=== PATIENT | female | born 1995 | race Caucasian/White ===

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

== ENCOUNTER 2017-02-11 02:33 | Emergency (ER) | payer MEDICAID ==
[~2017-02-11] VITALS: Ht 160 cm; Wt 78.5 kg
[2017-02-11 03:10] LABS: Basophils # (auto) 0 uL; Basophils % (auto) 0.6 % (0.0-2.0); Eosinophils # (auto) 0 uL; Eosinophils % (auto) 0.6 % (0.0-7.0); Hematocrit 40.4 % (36.0-46.0); Hemoglobin 13.4 g/dL (12.2-16.2); Lymphocytes # (auto) 1.3 uL; Lymphocytes % (auto) 30.5 % (10.0-50.0); Mean Corpuscular Hemoglobin 29.8 pg (28.0-32.0); Mean Corpuscular Hgb Conc. 33.3 g/dL (32.0-36.0); Mean Corpuscular Volume 89.4 fL (80.0-100.0); Mean Platelet Volume 8.1 fL (6.9-10.8); Monocytes # (auto) 0.7 uL; Monocytes % (auto) 15.8 % (0.0-12.0); Neutrophils # (auto) 2.3 uL; Neutrophils % (auto) 52.5 % (37.0-80.0); Nucleated Red Blood Cells % 0.1 %; Platelet Count (auto) 359 10^3/uL (140-450); Red Cell Distribution Width 13.5 % (11.8-14.3); White Blood Cell 4.3 10^3/uL (4.4-10.8)
[2017-02-11 03:25] LABS: Albumin 3.8 g/dL (3.4-5.0); Potassium 3.5 mmol/L (3.5-5.1)
[2017-02-11 03:29] LABS: BUN/Creatinine Ratio 17.5; Bilirubin, Total 0.5 mg/dL (0.2-1.0); Calcium 8.8 mg/dL (8.5-10.1); Total Protein 8.8 g/dL (6.4-8.2)
[2017-02-11 03:33] LABS: Urine Bilirubin Negative (Negative); Urine Blood Negative /uL (Negative); Urine Color Yellow (Yellow); Urine Glucose Normal (Normal); Urine Ketone 1+ (Negative); Urine Mucus FEW (None Seen); Urine Nitrite Negative (Negative); Urine RBC 1 /hpf (0 - 4); Urine Squamous Epithelial Cell FEW /hpf (<5); Urine Urobilinogen Normal (Negative)
[2017-02-11 04:15] VITALS: BP 113/68
== END 2017-02-11 07:44 | disposition left against medical advice (07) ==
LOC: ER 02:40
DX: R10.9 Unspecified abdominal pain (principal); Z53.21 Procedure and treatment not carried out due to patient leaving prior to being seen by health care provider
CPT/HCPCS: 36415; 80053; 81001; 81025; 85025

== ENCOUNTER 2017-03-16 13:27 | Emergency (ER) | payer MEDICAID ==
[~2017-03-16] VITALS: Ht 160 cm; Wt 73.9 kg
[2017-03-16 16:35] VITALS: BP 114/75
[2017-03-16 16:53] LABS: Urine Specific Gravity 1.022 (1.001-1.035)
[2017-03-16 16:54] LABS: Urine Blood Trace /uL (Negative)
[2017-03-16 16:59] LABS: Urine Bacteria FEW /hpf (None Seen); Urine WBC 80 /hpf (0 - 5)
== END 2017-03-16 16:36 | disposition home or self-care (01) ==
LOC: ER 13:27
DX: N39.0 Urinary tract infection, site not specified (principal); F17.210 Nicotine dependence, cigarettes, uncomplicated; F12.10 Cannabis abuse, uncomplicated
CPT/HCPCS: 81001; 81025

== ENCOUNTER 2017-06-15 18:32 | Emergency (ER) | payer MEDICAID ==
[~2017-06-15] VITALS: Ht 162.6 cm; Wt 74.4 kg
[2017-06-15 19:20] LABS: Basophils # (auto) 0.1 uL; Basophils % (auto) 2.1 % (0.0-2.0); Eosinophils # (auto) 0 uL; Eosinophils % (auto) 0.5 % (0.0-7.0); Hematocrit 38.5 % (36.0-46.0); Lymphocytes # (auto) 1.9 uL; Lymphocytes % (auto) 27.4 % (10.0-50.0); Mean Corpuscular Hemoglobin 29.9 pg (28.0-32.0); Mean Corpuscular Hgb Conc. 33.7 g/dL (32.0-36.0); Mean Corpuscular Volume 88.7 fL (80.0-100.0); Monocytes # (auto) 0.6 uL; Monocytes % (auto) 9.2 % (0.0-12.0); Neutrophils # (auto) 4.3 uL; Neutrophils % (auto) 60.8 % (37.0-80.0); Nucleated Red Blood Cells % 0.1 %; Platelet Count (auto) 360 10^3/uL (140-450); Red Blood Cells 4.34 10^6/uL (4.0-5.20); Red Cell Distribution Width 13.2 % (11.8-14.3)
[2017-06-15 22:15] LABS: Urine Bacteria FEW /hpf (None Seen); Urine Blood Negative /uL (Negative); Urine Specific Gravity 1.004 (1.001-1.035); Urine WBC 15 /hpf (0 - 5)
[2017-06-15 22:20] LABS: Albumin 3.5 g/dL (3.4-5.0); BUN/Creatinine Ratio 15.1; Calcium 9.1 mg/dL (8.5-10.1); Potassium 3.6 mmol/L (3.5-5.1)
[2017-06-15 22:22] LABS: Bilirubin, Total 0.4 mg/dL (0.2-1.0); Total Protein 8.2 g/dL (6.4-8.2)
[2017-06-15] MEDS ORDERED: cefTRIAXone 1GM/10ml IVPUSH 10 ML IV ONE ×2 (23:15→23:45)
[2017-06-16 03:00] VITALS: BP 104/61
== END 2017-06-16 03:24 | disposition home or self-care (01) ==
LOC: ER 18:32
DX: O20.0 Threatened abortion (principal); O99.331 Smoking (tobacco) complicating pregnancy, first trimester; O23.41 Unspecified infection of urinary tract in pregnancy, first trimester; Z3A.11 11 weeks gestation of pregnancy
CPT/HCPCS: 36415; 76801; 80053; 81001; 84702; 85025; 96374

== ENCOUNTER 2017-11-22 13:23 | Observation (INO) | payer MEDICAID ==
[2017-11-22] MEDS ORDERED: TERBUTALINE SULFATE 1 MG/ML 1ML VIAL SC SCH (14:45)
[2017-11-22] MEDS ORDERED: PREN-145 OR (16:56)
== END 2017-11-22 16:30 | disposition home or self-care (01) | DRG 566 ==
LOC: LDRP 13:23
PROVIDERS: ADMIT Specialist; ATTEND Specialist
DX: O62.9 Abnormality of forces of labor, unspecified (principal); Z3A.33 33 weeks gestation of pregnancy
CPT/HCPCS: 59025; 81002; 96372; G0378; J3105

== ENCOUNTER 2017-12-19 01:04 | Observation (INO) | payer MEDICAID ==
[~2017-12-19] VITALS: Ht 162.6 cm; Wt 91.2 kg
[~2017-12-19 01:04] MED LIST: PREN-145 OR
[2017-12-19] MEDS ORDERED: LACTATED RINGER'S 1,000 ML IV SCH (01:15)
[2017-12-19] MEDS ORDERED: LACTATED RINGER'S 1,000 ML IV ONE (01:15)
[2017-12-19] MEDS ORDERED: ceFAZolin 1GM/50ML 50 ML IV ONE (01:30)
[2017-12-19 02:10] LABS: Urine Bacteria MOD /hpf (None Seen); Urine Blood Negative /uL (Negative); Urine WBC 83 /hpf (0 - 5)
[2017-12-19 02:21] LABS: Alcohol, Urine < 3.0 mg/dL (0-5); Amphetamine Screen, Urine NEGATIVE (NEGATIVE); Barbiturate Scree,Urine NEGATIVE (NEGATIVE); Benzodiazephine Screen, Urine NEGATIVE (NEGATIVE); Cannabinoid Screen, Urine NEGATIVE (NEGATIVE); Cocaine Screen, Urine NEGATIVE (NEGATIVE); Opiate Scree,Urine POSITIVE (NEGATIVE); Phencyclidine Screen, Urine NEGATIVE (NEGATIVE)
== END 2017-12-19 02:37 | disposition home or self-care (01) | DRG 566 ==
LOC: LDRP 01:04
PROVIDERS: ADMIT Obstetrics & Gynecology; ATTEND Obstetrics & Gynecology
DX: O26.893 Other specified pregnancy related conditions, third trimester (principal); F12.10 Cannabis abuse, uncomplicated; M25.50 Pain in unspecified joint; R51 Headache; O62.9 Abnormality of forces of labor, unspecified; O99.343 Other mental disorders complicating pregnancy, third trimester; Z3A.37 37 weeks gestation of pregnancy
CPT/HCPCS: 59025; 80307; 81001; 81002; 96365; G0378; J0690; 96366

== ENCOUNTER 2017-12-28 00:29 | Inpatient (IN) | payer MEDICAID ==
[~2017-12-28] VITALS: Ht 162.6 cm; Wt 92.1 kg
[2017-12-28 02:19] LABS: Alcohol, Urine < 3.0 mg/dL (0-5); Amphetamine Screen, Urine NEGATIVE (NEGATIVE); Barbiturate Scree,Urine NEGATIVE (NEGATIVE); Benzodiazephine Screen, Urine NEGATIVE (NEGATIVE); Cannabinoid Screen, Urine NEGATIVE (NEGATIVE); Cocaine Screen, Urine NEGATIVE (NEGATIVE); Opiate Scree,Urine NEGATIVE (NEGATIVE); Phencyclidine Screen, Urine NEGATIVE (NEGATIVE)
[2017-12-28] MEDS ORDERED: METHYLERGONOVINE MALEATE 0.2 MG/ML AMP IM PRN (02:30)
[2017-12-28] MEDS ORDERED: LACTATED RINGER'S 1,000 ML IV SCH (02:30)
[2017-12-28] MEDS ORDERED: LIDOCAINE 2% (LOCAL ANESTH.) PF 5ml SDV ID ONE (02:30)
[2017-12-28] MEDS ORDERED: LACT. RINGERS/OXYTOCIN 20UNITS 1,000 ML IV SCH (02:30)
[2017-12-28] MEDS ORDERED: DERMOPLAST 60ML BOTTLE TOP PRN (02:30)
[2017-12-28] MEDS ORDERED: NALBUPHINE HCL 10 MG/1ml INJECTION IV PRN (02:30)
[2017-12-28] MEDS ORDERED: CARBOPROST TROMETHAMINE 250 MCG/1ML VIAL IM PRN (02:30)
[2017-12-28] MEDS ORDERED: PHISODERM TOP SOLN 240ML BTL TOP PRN (02:30)
[2017-12-28] MEDS ORDERED: WITCH HAZEL-GLYCERIN PAD TOP PRN (02:30)
[2017-12-28 03:05] LABS: Urine Bacteria NONE SEEN /hpf (None Seen); Urine Blood 1+ /uL (Negative); Urine WBC 81 /hpf (0 - 5)
[2017-12-28 03:22] LABS: Basophils # (auto) 0.1 uL; Basophils % (auto) 0.6 % (0.0-2.0); Eosinophils # (auto) 0 uL; Eosinophils % (auto) 0.4 % (0.0-7.0); Hematocrit 39.2 % (36.0-46.0); Hemoglobin 12.8 g/dL (12.2-16.2); Mean Corpuscular Hemoglobin 29.9 pg (28.0-32.0); Mean Corpuscular Hgb Conc. 32.5 g/dL (32.0-36.0); Mean Corpuscular Volume 91.9 fL (80.0-100.0); Monocytes # (auto) 0.9 uL; Monocytes % (auto) 7.7 % (0.0-12.0); Neutrophils # (auto) 8.9 uL; Neutrophils % (auto) 74.3 % (37.0-80.0); Platelet Count (auto) 327 10^3/uL (140-450); Red Blood Cells 4.27 10^6/uL (4.0-5.20)
[2017-12-28 03:35] LABS: INR 0.85 (0.9-1.15); Partial Thromboplastin Time 27.8 sec (23.78-33.04); Prothrombin Time 9.2 sec (9.27-12.13)
[2017-12-28 03:42] LABS: Albumin 2.7 g/dL (3.4-5.0); Calcium 8.5 mg/dL (8.5-10.1)
[2017-12-28 03:45] LABS: BUN/Creatinine Ratio 21.4; Bilirubin, Total 0.5 mg/dL (0.2-1.0); Total Protein 8.1 g/dL (6.4-8.2)
[2017-12-28] MEDS ORDERED: BUTORPHANOL TARTRATE 2 MG/1 ML VIAL IV ONE (04:00)
[2017-12-28] MEDS ORDERED: PROMETHAZINE HCL 25 MG/ML 1ML IV PRN (04:00)
[2017-12-28] MEDS ORDERED: BUTORPHANOL TARTRATE 2 MG/1 ML VIAL ONE (04:04)
[2017-12-28] MEDS ORDERED: TERBUTALINE SULFATE 1 MG/ML 1ML VIAL SC ONE (07:45)
[2017-12-28] MEDS ORDERED: fentaNYL W ROPIVACAINE 150 ML EPI SCH ×2 (09:15→11:00)
[2017-12-28] MEDS ORDERED: NALOXONE HCL 0.4 MG/ML VIAL IV ONE ×2 (09:15→11:00)
[2017-12-28] MEDS ORDERED: LIDOCAINE HCL 2 %PF INJ 10ML AMP IJ ONE (09:15)
[2017-12-28] MEDS ORDERED: fentaNYL CITRATE 100 MCG/2 ML VL IV ONE ×2 (09:15→11:00)
[2017-12-28] MEDS ORDERED: ePHEDrine SULFATE 50 MG/ML AMP IV ONE ×2 (09:15→11:00)
[2017-12-28] MEDS ORDERED: ONDANSETRON HCL 4 MG/2 ML VIAL ONE (14:44)
[2017-12-28] MEDS ORDERED: DIPHENOXYLATE W/ATROPINE 2.5 MG TAB ONE (14:54)
[2017-12-28] MEDS ORDERED: DIPHENOXYLATE W/ATROPINE 2.5 MG TAB PO ONE (15:00)
[2017-12-28 19:00] VITALS: BP 115/65
[2017-12-28] MEDS ORDERED: ACETAMINOPHEN 325 MG TAB PO PRN (21:30)
[2017-12-28] MEDS: IBUPROFEN 600 MG TAB PO PRN (21:42)
[2017-12-28 23:30] VITALS: BP 102/69
[2017-12-29] MEDS: IBUPROFEN 600 MG TAB PO PRN ×2 (00:35→10:54)
[2017-12-29 03:30] VITALS: BP 95/55
[2017-12-29 07:00] VITALS: BP 98/57
[2017-12-29 11:20] VITALS: BP 93/55
[2017-12-29] MEDS ORDERED: INFLUENZA QUAD 2018-2019 0.5 ML SYRG IM ONE (15:00)
[2017-12-29] MEDS ORDERED: TETANUS-DIPTH-ACEL PERTUSSIS 0.5ML SYRG IM ONE (15:00)
[2017-12-29] MEDS ORDERED: MEASLES, MUMPS & RUBELLA VAC(MMRII) 0.5ML SC ONE (15:00)
[2017-12-29 15:20] VITALS: BP 106/69
== END 2017-12-29 16:25 | disposition home or self-care (01) | DRG 560 ==
LOC: OBSVTOIN 00:29 → LDRP 00:29
PROVIDERS: ADMIT Specialist; ATTEND Specialist
PROC: 10D07Z6 Extraction of Products of Conception, Vacuum, Via Natural or Artificial Opening (ICD-10-PCS; principal; 2017-12-28)
PROC: 00HU33Z Insertion of Infusion Device into Spinal Canal, Percutaneous Approach (ICD-10-PCS; 2017-12-28)
PROC: 3E0R3BZ Introduction of Anesthetic Agent into Spinal Canal, Percutaneous Approach (ICD-10-PCS; 2017-12-28)
PROC: 0KQM0ZZ Repair Perineum Muscle, Open Approach (ICD-10-PCS; 2017-12-28)
DX: O77.0 Labor and delivery complicated by meconium in amniotic fluid (principal); O70.1 Second degree perineal laceration during delivery; Z37.0 Single live birth; Z3A.39 39 weeks gestation of pregnancy
CPT/HCPCS: 36415; 59025; 59409; 59414; 62282; 80053; 80307; 81001; 81002; 85025; 85610; 85730; 86850; 86900; 86901; 90674; 90715; 96365; 96366; 96372; 96374; 96375; G0378; J2001; J2405; J2590; J3010

== ENCOUNTER 2024-04-22 22:50 | Inpatient (IN) | payer MEDICAID ==
[~2024-04-22] VITALS: Ht 162.6 cm; Wt 97.5 kg
[2024-04-23] MEDS ORDERED: LIDOCAINE 2%HCL (LOCAL ANESTH.) INJ 20ML MDV IJ PRN (02:15)
[2024-04-23] MEDS ORDERED: PENICILLIN G POT 5MIL/D5 50ML 50 ML IV ONE (02:15)
[2024-04-23] MEDS ORDERED: NALBUPHINE HCL 10 MG/1ml INJECTION IV PRN (02:15)
[2024-04-23 02:52] LABS: Urine Bacteria None Seen /hpf (None Seen)
[2024-04-23 02:53] LABS: Basophils # (auto) 0.1 10 ^3/uL (0-0.2); Basophils % (auto) 0.7 % (0.0-2.0); Eosinophils # (auto) 0 10 ^3/uL (0-0.8); Eosinophils % (auto) 0.3 % (0.0-7.0); Hematocrit 37.4 % (36.0-46.0); Hemoglobin 12.5 g/dL (12.2-16.2); Lymphocytes # (auto) 1.5 10 ^3/uL (0.4-5.4); Lymphocytes % (auto) 18.2 % (10.0-50.0); Mean Corpuscular Hemoglobin 29.7 pg (28.0-32.0); Mean Corpuscular Hgb Conc. 33.3 g/dL (32.0-36.0); Mean Corpuscular Volume 89.2 fL (80.0-100.0); Monocytes # (auto) 0.9 10 ^3/uL (0-1.3); Monocytes % (auto) 10.9 % (0.0-12.0); Neutrophils # (auto) 5.9 10 ^3/uL (1.6-8.6); Neutrophils % (auto) 69.9 % (37.0-80.0); Nucleated Red Blood Cells % 0.2 %; Platelet Count (auto) 316 10^3/uL (140-450); Red Cell Distribution Width 15.1 % (11.8-14.3); White Blood Cell 8.4 10^3/uL (4.4-10.8)
--- NOTE | 2024-04-23 02:59 | DVHHP ---
ADMIT DATE: 04/23/2024 CHIEF COMPLAINT: Labor. HISTORY OF PRESENT ILLNESS: The patient is a 29-year-old 2, para 1 with EDC 04/28, estimated gestational age of 39 weeks, admitted for labor. The patient denies having vaginal bleeding or rupture of membrane. The patient has care with Dr. Medellin, did not want to deliver with her. She presented to labor and delivery. PAST MEDICAL HISTORY: None. PAST SURGICAL HISTORY: None. SOCIAL HISTORY: None. FAMILY HISTORY: None. OBSTETRIC AND GYNECOLOGIC HISTORY: One vaginal delivery. REVIEW OF SYSTEMS: Consistent with HPI. PHYSICAL EXAMINATION: VITAL SIGNS: Stable, afebrile. HEENT: Within normal limits. CARDIOVASCULAR: Regular rate and rhythm. LUNGS: Clear to auscultation. BREASTS: Symmetrical. No masses. ABDOMEN: Gravid. Positive heart. PELVIC: 4 cm, 70%, -2. EXTREMITIES: No clubbing, cyanosis or edema. IMPRESSION: * Intrauterine at 39 weeks, in labor. * Unknown care. PLAN: Expectant vaginal delivery. Informed consent obtained. The patient will be managed by Dr. Espino, on-call physician at 7:00 a.m. Betty An DO MZ/HEM TID: [id number] RECEIPT: [id number]
--- NOTE | 2024-04-23 03:00 | DVH ---
Examination: BPP CLINICAL INDICATION: GDMA1 COMPARISON: None. TECHNIQUE: Transabdominal ultrasound was performed. FINDINGS: movement- 2/2 tone- 2/2 breathing- 2/2 Amniotic fluid index- 2/2 KAILYN- 9.9 cm FHR 169 bpm Presentation vertex Placenta-fundal No placenta previa or Placental abruption IMPRESSION: Biophysical profile- 10/07, Normal. Electronically Signed 04/23/2024 02:58 Rasta Peters
--- NOTE | 2024-04-23 03:01 | DVH ---
Examination: OBUS CLINICAL INDICATION: No Care/GDMA1 COMPARISON: None. TECHNIQUE: Transabdominal obstetric ultrasound was performed. FINDINGS Profile: A single live intrauterine is present.Cephalic presentation noted. cardiac activity is well appreciated with a heart rate (FHR) of 163 bpm.The estimated weight is 3574 grams.P lacenta: Anterior fundal placenta with a grade 3 maturity.Amniotic Fluid Index (KAILYN): 10.29 cm. Cervix: Cervix is not visualized.No percent previa or abruption seen. Biometry: Biparietal Diameter (BPD): 8.94 cm, corresponding to 36 weeks 1 day.Head Circumference (HC): 33.43 cm , corresponding to 38 weeks 2 days.Abdominal Circumference (AC): 35.35 cm, corresponding to 39 weeks 2 days.Femur Length (FL): 7.67 cm, corresponding to 39 weeks 2 days.Average Gestational Age: 38 weeks 2 days.Estimated Due Date (JOSE): 05/05/2024.IMPRESSION: 1. Single live intrauterine at approximately 38 weeks 2 days gestation. 2. Cephalic presentation 3. No evidence of previa or abruption. 4. Placenta is anterior and fundal, grade 3. RECOMMENDATIONS: 1. Routine obstetric follow-up as per clinical guidelines. 2. Continue standard care. 3. Further evaluation if clinically indicated. Electronically Signed 04/23/2024 02:59 Rasta Peters
[2024-04-23 03:08] LABS: INR 0.9 (0.9-1.15); Partial Thromboplastin Time 28.2 SEC (24.5-34.5); Prothrombin Time 9.6 sec (9.3-11.8)
[2024-04-23 03:12] LABS: Alanine Aminotransferase 33 U/L (7-40); Albumin 3.7 g/dL (3.2-4.8); Anion Gap 9 (5-15); Aspartate Aminotransferase 35 U/L (13-40); BUN/Creatinine Ratio 18.2 (10.0-20.0); Bilirubin, Total 0.3 mg/dL (0.2-1.0); Blood Urea Nitrogen 10 mg/dL (9-23); Calcium 9.2 mg/dL (8.7-10.4); Carbon Dioxide 22 mmol/L (20-31); Glucose 83 mg/dL (74-106); Potassium 3.8 mmol/L (3.5-5.1); Sodium 138 mmol/L (136-145); Total Protein 6.9 g/dL (5.7-8.2)
[2024-04-23 03:14] LABS: Alkaline Phosphatase 153 U/L (46-116); Amphetamine Screen, Urine Neg (NEGATIVE); Barbiturate Scree,Urine Neg (NEGATIVE); Benzodiazephine Screen, Urine Neg (NEGATIVE); Cannabinoid Screen, Urine Neg (NEGATIVE); Chloride 107 mmol/L (98-107); Cocaine Screen, Urine Neg (NEGATIVE); Opiate Scree,Urine Neg (NEGATIVE); Phencyclidine Screen, Urine Neg (NEGATIVE)
[2024-04-23 03:22] LABS: Urine Blood 2+ /uL (Negative); Urine Clarity Turbid (Clear); Urine Color Yellow (Yellow); Urine Mucus FEW (None Seen); Urine Protein, UAD TRACE (Negative); Urine Squamous Epithelial Cell FEW /hpf (<5); Urine Urobilinogen Normal (Negative); Urine WBC 21 /HPF (0-5)
[2024-04-23] MEDS ORDERED: ePHEDrine SULFATE 50 MG/ML AMP IV ONE (04:15)
[2024-04-23] MEDS ORDERED: NALOXONE HCL 0.4 MG/ML VIAL IV ONE (04:15)
[2024-04-23] MEDS ORDERED: ROPIVACAINE HCL 200 ML ONE (04:25)
[2024-04-23] MEDS: DERMOPLAST 60ML BOTTLE TOP PRN (04:32)
[2024-04-23] MEDS: WITCH HAZEL-GLYCERIN PAD TOP PRN (04:32)
[2024-04-23] MEDS: PHISODERM TOP SOLN 240ML BTL TOP PRN (04:32)
[2024-04-23] MEDS ORDERED: ACCU-CHEK COMFORT CURVE STRIP VI SCH (05:00)
[2024-04-23] MEDS: LACTATED RINGER'S 1,000 ML IV ONE (06:01)
[2024-04-23] MEDS ORDERED: PENICILLIN G POTASSIUM 2,500,000 UNITS in D5W 5% 50 ML IV SCH (06:15)
--- NOTE | 2024-04-23 08:38 | DVHPN2 ---
Chief Complaints Patient reports: No new complaints Nursing reports: No new complaints Objective Medications Current Medications Medications (Trade) Dose Ordered Sig/Sunday Route PRN Reason Start Time Stop Time Status Last Admin Benzocaine (Dermoplast) 1 applic PRN PRN TOP PERINEAL AREA DISCOMFORT 04/23/24 02:15 04/23/24 04:32 Diagnostic Test (Pha) (Accu-Chek Comfort Curve T) 1 strip Q4HR 04/23/24 05:00 Lidocaine HCl (Xylocaine) 20 ml ONCE PRN IJ PERINEAL AREA DISCOMFORT 04/23/24 02:15 Nalbuphine HCl (Nubain) 10 mg Q4HP PRN IV MODERATE PAIN (4-6 PAIN SCALE) 04/23/24 02:15 Penicillin G Potassium [id number] units/Dextrose 50 ml @ 100 mls/hr Q4H IV 04/23/24 06:15 Sodium Lauryl Sulfate (Phisoderm) 240 ml PRN PRN TOP PERINEAL AREA DISCOMFORT 04/23/24 02:15 04/23/24 04:32 Witch Wendy (Yulia) 1 pad PRN PRN TOP PERINEAL AREA DISCOMFORT 04/23/24 02:15 04/23/24 04:32 Others VE ; 10cm , 100 %, 0 station Arom clear Studies Laboratory Tests 04/23/24 02:30 Test 04/23/24 02:30 Range/Units Serum Glucose 83 74-106 mg/dL Ass/Plan Assessment Labor active Plan expectant vag delivery YEE RINCON DO Apr 23, 2024 08:38
--- NOTE | 2024-04-23 09:46 | LDN2 ---
Labor and Delivery Note Date 04/23/24 Age 29 2 Para 1 AB 0 EDC 04/28/2024 EGA 39+ wks Diagnosis Labor Vacuum Assisted: No Placenta: Spontaneous Sex: Female Apgars 8/8 Nuchal Cord Transected: No Amniotic Fluid: Clear Anesthesia Epidural Episiotomy: No Extension: Yes (1st knick posterior perineum) Repaired with 2-0 chromic single stitch fig 8 EBL 300 cc Labs Laboratory Tests 04/23/24 02:30: Hepatitis B Surface Antigen Negative, HIV (1&2) Antibody Negative Blood Bank 04/23/24 02:30: Blood Type O POSITIVE Complications none Conditions stable [employer] Clerk none present YEE RINCON DO Apr 23, 2024 09:46
[2024-04-23] MEDS ORDERED: ONDANSETRON ODT 4 MG TAB PO PRN (10:30)
[2024-04-23] MEDS: LACTATED RINGER'S 500 ML IV ONE (13:48)
[2024-04-23] MEDS: LACT. RINGERS/OXYTOCIN 20UNITS 500 ML IV ONE ×2 (13:48)
[2024-04-23] MEDS: IBUPROFEN 600 MG TAB PO PRN (14:58)
[2024-04-23 15:05] VITALS: BP 110/80; PULSE 89; RESP 16; TEMP 97.9; O2SAT 96
[2024-04-23 19:00] VITALS: BP 111/71; PULSE 88; RESP 17; TEMP 98; O2SAT 97
[2024-04-23] MEDS: ACETAMINOPHEN 325 MG TAB PO PRN (19:47)
[2024-04-23 23:00] VITALS: BP 115/73; PULSE 77; RESP 16; TEMP 98; O2SAT 96
[2024-04-24 07:30] VITALS: BP 105/70; PULSE 84; RESP 16; TEMP 97.6; O2SAT 95
--- NOTE | 2024-04-24 08:57 | DVHPN2 ---
Chief Complaints Patient reports: No new complaints, Other (Post day) Nursing reports: No new complaints Objective Vitals Vital Signs Date Time Temp Pulse Resp B/P (MAP) Pulse Ox O2 Delivery O2 Flow Rate FiO2 04/24/24 07:00 Room Air 04/23/24 23:00 98.0 77 16 115/73 (87) 96 98.0 Medications Current Medications Medications (Trade) Dose Ordered Sig/Sunday Route PRN Reason Start Time Stop Time Status Last Admin Acetaminophen (Tylenol Tablet) 650 mg Q4HP PRN PO MILD PAIN (1-3 PAIN SCALE) 04/23/24 10:30 04/23/24 19:47 Ibuprofen (Motrin Tablet) 600 mg Q6HP PRN PO MODERATE PAIN (4-6 PAIN SCALE) 04/23/24 10:30 04/24/24 07:00 Ondansetron HCl (Zofran Po) 4 mg Q4HPRN PRN PO NAUSEA / VOMITING 04/23/24 10:30 General: Normal Neck: Normal Lungs: Normal Cardiovascular: Normal (Serious) Abdominal: Normal (Uterus firm) Musculoskeletal: Normal Extremities: Normal Skin: Normal Neurological: Normal (iliac like that is like mature) Studies Laboratory Tests 04/23/24 02:30 Test 04/23/24 02:30 Range/Units Serum Glucose 83 74-106 mg/dL Ass/Plan Assessment day 1 stable improved Plan See discharge summary see discharge orders. YEE RINCON DO Apr 24, 2024 08:57
--- NOTE | 2024-04-24 09:00 | DVHDS2 ---
Discharge Summary Date of Admission Apr 23, 2024 at 02:10 Date of Discharge: Apr 24, 2024 Admitting Diagnosis Labor Wounds: Minimal perineal vaginal nicks Labs/Diagnostic Data: Laboratory Results Test 04/23/24 04:32 04/23/24 02:30 POC Glucose 93 mg/dl (70-106) White Blood Count 8.4 10^3/uL (4.4-10.8) Red Blood Count 4.20 10^6/uL (4.0-5.20) Hemoglobin 12.5 g/dL (12.2-16.2) Hematocrit 37.4 % (36.0-46.0) Mean Corpuscular Volume 89.2 fL (80.0-100.0) Mean Corpuscular Hemoglobin 29.7 pg (28.0-32.0) Mean Corpuscular Hemoglobin Concent 33.3 g/dL (32.0-36.0) Red Cell Distribution Width 15.1 % (11.8-14.3) Platelet Count 316 10^3/uL (140-450) Mean Platelet Volume 8.4 fL (6.9-10.8) Neutrophils (%) (Auto) 69.9 % (37.0-80.0) Lymphocytes (%) (Auto) 18.2 % (10.0-50.0) Monocytes (%) (Auto) 10.9 % (0.0-12.0) Eosinophils (%) (Auto) 0.3 % (0.0-7.0) Basophils (%) (Auto) 0.7 % (0.0-2.0) Neutrophils # (Auto) 5.9 10 ^3/uL (1.6-8.6) Lymphocytes # (Auto) 1.5 10 ^3/uL (0.4-5.4) Monocytes # (Auto) 0.9 10 ^3/uL (0-1.3) Eosinophils # (Auto) 0 10 ^3/uL (0-0.8) Basophils # (Auto) 0.1 10 ^3/uL (0-0.2) Nucleated Red Blood Cells 0.2 % Prothrombin Time 9.6 sec (9.3-11.8) Prothrombin Time INR 0.90 (0.9-1.15) Activated Partial Thromboplast Time 28.2 SEC (24.5-34.5) Urine Color Yellow (Yellow) Urine Clarity Turbid (Clear) Urine pH 6.0 (5.0-9.0) Urine Specific Streeter 1.030 (1.001-1.035) Urine Protein Trace (Negative) Urine Ketones Negative (Negative) Urine Blood 2+ /uL (Negative) Urine Nitrite Negative (Negative) Urine Bilirubin Negative (Negative) Urine Urobilinogen Normal mg/dL (Negative) Urine Leukocyte Esterase 3+ /uL (Negative) Urine RBC 19 /hpf (0 - 4) Urine Microscopic WBC 21 /HPF (0-5) Urine Squamous Epithelial Cells Few /hpf (<5) Urine Bacteria None seen /hpf (None Seen) Urine Mucus Few (None Seen) Urine Glucose Trace mg/dL (Normal) Sodium Level 138 mmol/L (136-145) Potassium Level 3.8 mmol/L (3.5-5.1) Chloride Level 107 mmol/L (98-107) Carbon Dioxide Level 22 mmol/L (20-31) Anion Gap 9 (5-15) Blood Urea Nitrogen 10 mg/dL (9-23) Creatinine 0.55 mg/dL (0.550-1.02) Glomerular Filtration Rate Calc 129 mL/min (>90) BUN/Creatinine Ratio 18.2 (10.0-20.0) Serum Glucose 83 mg/dL (74-106) Calcium Level 9.2 mg/dL (8.7-10.4) Total Bilirubin 0.3 mg/dL (0.2-1.0) Aspartate Amino Transferase (AST) 35 U/L (13-40) Alanine Aminotransferase (ALT) 33 U/L (7-40) Alkaline Phosphatase 153 U/L (46-116) Total Protein 6.9 g/dL (5.7-8.2) Albumin 3.7 g/dL (3.2-4.8) Urine Opiates Screen Neg (NEGATIVE) Urine Fentanyl Screen Neg (NEGATIVE) Urine Barbiturates Screen Neg (NEGATIVE) Urine Phencyclidine Screen Neg (NEGATIVE) Urine Amphetamines Screen Neg (NEGATIVE) Urine Benzodiazepines Screen Neg (NEGATIVE) Urine Cocaine Screen Neg (NEGATIVE) Urine Cannabinoids Screen Neg (NEGATIVE) Hepatitis B Surface Antigen Negative (Negative) Hepatitis C Antibody Negative (Negative) HIV (1&2) Antibody Negative (Negative) Other Laboratory Tests 04/23/24 02:30 Brief Hx & Hospital Course: No significant hospital course normal in recovery Consults/Reason for consult Course unremarkable normal vaginal delivery recovering none Operations or Procedures None Condition at Discharge: Good Final Diagnosis/Problems List Status post Secondary Diagnosis: None Discharge Disposition: Home SNF Discharge Will this Physician continue t: No Discharge Instruct/Medications Diet: Regular Activity: No Restrictions, As Tolerated (Pelvic rest 6 weeks) Follow Up/Referral: Primary OB 2 weeks or p.r.n. Discharge Statement: "Patient was advised to return to the ER or call 911 if any headaches, dizziness, shortness of breath, chest pain, abdominal pain, bleeding, fevers, or worsening of medical condition. Patient was counseled about treatment plan, medications, possible side effects, patientverbalized understanding. All questions were answered to the best of my ability. This discharge took greater then 30 minutes in planning, reviewing documentation, counseling the patient, and discussing with other team members." ASSESSMENT ASSESSMENT Assessment Visit Coding OBGYN Date of Service: Apr 24, 2024 Billing Provider: YEE RINCON DO CALCIMINER Common Visit Codes: 41229-FUX/OBS SAME DATE (HIGH) CALCIMINER Procedure Codes: 77935-POO DELIVERY ONLY YEE RINCON DO Apr 24, 2024 09:00
[2024-04-24 11:30] VITALS: BP 107/80; PULSE 85; RESP 16; TEMP 97.8; O2SAT 95
[2024-04-25 22:07] LABS: Chlamydia Trachomatis, NAA Negative (Negative); Neisseria gonorrhoeae, NAA Negative (Negative)
[2024-04-26 04:07] LABS: RPR Non Reactive (Non Reactive)
== END 2024-04-24 13:57 | disposition home or self-care (01) | DRG 560 ==
LOC: LDRP 22:50 → UNDOADMOB 22:50 → INTOOBSV 04-23 02:10 → LDRP 04-23 02:10 → OBSVTOIN 04-23 02:10 → LDRP 04-23 19:37
PROVIDERS: ADMIT Obstetrics & Gynecology; ATTEND Obstetrics & Gynecology
PROC: 10E0XZZ Delivery of Products of Conception, External Approach (ICD-10-PCS; principal; 2024-04-23)
PROC: 0HQ9XZZ Repair Perineum Skin, External Approach (ICD-10-PCS; 2024-04-23)
PROC: 3E0R3BZ Introduction of Anesthetic Agent into Spinal Canal, Percutaneous Approach (ICD-10-PCS; 2024-04-23)
PROC: 00HU33Z Insertion of Infusion Device into Spinal Canal, Percutaneous Approach (ICD-10-PCS; 2024-04-23)
DX: O70.0 First degree perineal laceration during delivery (principal); Z37.0 Single live birth; Z3A.39 39 weeks gestation of pregnancy
CPT/HCPCS: 36415; 59025; 59409; 62282; 76805; 76818; 80053; 80307; 81001; 81002; 82948; 82962; 85025; 85610; 85730; 86592; 86703; 86762; 86780; 86803; 86850; 86900; 86901; 87340; 94760; 96360; 96361; 96365; 96366; G0378; J2540; J2590; J7060